=== PATIENT | female | born 1950 | race Caucasian/White ===

== ENCOUNTER → 2019-10-15 09:18 | Outpatient (CLI) | payer MEDICARE, OTHER, SELFPAY ==
--- NOTE | ~2019-10-15 | MM_ITS ---
EXAMINATION: MM diagnostic eric BI w [place] HISTORY: Left mastodynia TECHNIQUE: Craniocaudal, mediolateral, and mediolateral oblique 3-D tomosynthesis images of the breas ts were performed and synthetic 2-D images were generated. CAD analysis was submitted and interpreted . COMPARISON: 08/14/2018, 07/11/2017, 02/12/2012 BREAST PARENCHYMAL COMPOSITION: There are scattered areas of fibroglandular density. FINDINGS: Scattered benign-appearing calcifications are present. There is no evidence of suspicious m ass, calcification, or architectural distortion in either breast to suggest malignancy. There has b een no suspicious interval change. No mammographic correlate is identified for the patient's reported left breast pain. IMPRESSION: 1. No specific mammographic correlate is identified for the patient's left breast pain Further evalua tion at this time should be based on clinical assessment. Continued follow-up physical examination is recommended. 2. Recommend routine screening mammography in one year. BI-RADS Category 2: Benign finding(s). Reviewed, dictated and finalized at location A. IMPRESSION: 1. No specific mammographic correlate is identified for the patient's left yoan st pain Further evaluation at this time should be based on clinical assessment. Continued follow-up physical examination is recommended. 2. Recommend routine screening mammography in one year. BI-RADS Category 2: Benign finding(s).
--- NOTE | ~2019-10-15 | DEXA_ITS ---
Bone Density Report Name: Keysha Richardson Age: 68 Sex: Female Ethnicity: White Date of : 1950 Indication: postmenopausal; screening for osteoporosis; height loss; hysterectomy; Referring Provider: Santhosh, Elsi Xiao Study: Bone densitometry was performed. Exam Date: October 15, 2019 Accession number: [id number] Bone Density: Region BMD T-score Z-score Classification AP Spine (L1, L2, L4) 1.021 -0.1 2.0 Normal Femoral Neck (Left) 0.730 -1.1 0.8 Osteopenia Total Hip (Left) 1.000 0.5 2.0 Normal Femoral Neck (Right) 0.748 -0.9 0.9 Normal Total Hip (Right) 0.939 0.0 1.5 Normal Total Hip Mean 0.970 0.3 1.8 Normal World Health Organization criteria for BMD impression classify patients as: Normal (T-score at or above -1.0), Osteopenia (T-score between -1.0 and -2.5), or Osteoporosis (T-score at or below -2.5). 10-year Fracture Risk(1): Major Osteoporotic Fracture 8.1% Hip Fracture 0.9% Reported Risk Factors: [place] (), Neck BMD=0.730, BMI=40.9 (1) FRAX(R) Version 3.08. Fracture probability calculated for an untreated patient. Fracture probability may be lower if the patient has received treatment. Previous Exams: Region Exam Age BMD T-score BMD Change BMD Change Date g/cm2 vs Baseline vs Previous AP Spine(L1, L2, L4) 10/15/2019 68 1.021 -0.1 -0.080 -0.097* 07/11/2017 66 1.118 0.8 0.017 0.017 09/14/2010 59 1.102 0.6 Total Hip(Left) 10/15/2019 68 1.000 0.5 -0.143 0.004 07/11/2017 66 0.996 0.4 -0.147 -0.092 09/14/2010 59 1.089 1.2 -0.054 -0.054 09/17/2002 51 1.143 1.6 Total Hip(Right) 10/15/2019 68 0.939 0.0 -0.239 -0.061* 07/11/2017 66 0.999 0.5 -0.178 -0.093 09/14/2010 59 1.093 1.2 -0.085 -0.085 09/17/2002 51 1.178 1.9 *Denotes significance at 95% confidence level, LSC for AP Spine = 0.022 g/cm2, LSC for Total Hip = 0.027 g/cm2 Clinical Information Provided by Patient: Has the following medical conditions: Hysterectomy Patient maximum height was 62.5 Menopause Age: 46 No regular weight bearing exercise Does not regularly consume dairy products Drinks caffeinated beverages Onset of menses at age 11 Number of children 1 Impression: The patient has low bone mass, based on the Left Femoral Neck T-score. The p
== END ==
PROVIDERS: PCP Family Medicine; Visit Provider Nurse Practitioner Obstetrics & Gynecology
DX: N64.4 Mastodynia (principal); Z78.0 Asymptomatic menopausal state; M85.852 Other specified disorders of bone density and structure, left thigh
CPT/HCPCS: 77062; 77066; 77080; G0279

== ENCOUNTER 2020-03-24 14:25 | Outpatient (CLI) | payer MEDICARE, OTHER, SELFPAY ==
--- NOTE | ~2020-03-24 | XR_ITS ---
EXAMINATION: XR hip LT 2V w AP pelvis DATE: 03/24/2020 14:58 INDICATION: Left hip pain. TECHNIQUE: An anteroposterior view of the pelvis and 3 views of left hip were obtained. COMPARISON: Pelvis and left hip radiographs 09/13/2018 FINDINGS: Bone alignment is normal. No fracture. There is mild right hip osteoarthritis and moderate left hip osteoarthritis. IMPRESSION: 1. Mild right hip osteoarthritis and moderate left hip osteoarthritis. Reviewed, dictated and finalized at location A.
--- NOTE | ~2020-03-24 | XR_ITS ---
EXAMINATION: XR shoulder LT min 2V DATE: 03/24/2020 14:58 INDICATION: Left shoulder pain. TECHNIQUE: 4 views of left shoulder were obtained. COMPARISON: None. FINDINGS: Bone alignment is normal. No fracture. There is mild osteoarthritis of glenohumeral joint a nd acromioclavicular joint. A calcified left hilar lymph node is consistent with old granulomatous di sease. IMPRESSION: 1. Mild polyarticular osteoarthritis. Reviewed, dictated and finalized at location A.
== END 2020-03-24 14:26 | disposition home or self-care (01) ==
LOC: ANHIMG 14:29
PROVIDERS: PCP Family Medicine; Visit Provider Physician Assistant Medical
DX: M16.11 Unilateral primary osteoarthritis, right hip (principal); M19.012 Primary osteoarthritis, left shoulder
CPT/HCPCS: 73030; 73502

== ENCOUNTER 2020-08-19 12:43 | Outpatient (NON) | payer MEDICARE, OTHER, SELFPAY ==
[2020-08-19 14:41] LABS: Influenza Control Positive
[2020-08-20 18:46] LABS: SARS-CoV-2 RNA PCR Positive
== END 2020-08-19 12:44 ==
LOC: ANHCOVIDDT 12:45
PROVIDERS: PCP Family Medicine; Visit Provider Nurse Practitioner Family
DX: U07.1 COVID-19 (principal)
CPT/HCPCS: 87804; C9803; U0003; U0005

== ENCOUNTER 2020-11-29 10:52 | Outpatient (CLI) | payer MEDICARE, OTHER, SELFPAY ==
--- NOTE | ~2020-11-29 | XR_ITS ---
EXAMINATION: XR knee LT 3V DATE: 11/29/2020 11:12 INDICATION: Left knee pain. TECHNIQUE: 3 views of left knee were obtained. COMPARISON: None. FINDINGS: Bone alignment is normal. No fracture. There is mild tricompartmental osteoarthritis charac terized by tiny marginal osteophytes. No knee joint effusion. IMPRESSION: 1. Mild left knee osteoarthritis. Reviewed, dictated and finalized at location A.
== END 2020-11-29 10:53 | disposition home or self-care (01) ==
PROVIDERS: PCP Family Medicine; Visit Provider Nurse Practitioner Family
DX: M25.562 Pain in left knee (principal); M17.12 Unilateral primary osteoarthritis, left knee
CPT/HCPCS: 73562

== ENCOUNTER 2021-01-06 06:57 | Outpatient (CLI) | payer MEDICARE, OTHER, SELFPAY ==
--- NOTE | ~2021-01-06 | CT_ITS ---
EXAMINATION: CT hip LT wo con DATE: 01/06/2021 07:21 INDICATION: Left hip pain TECHNIQUE: High resolution computed tomography (CT) of the left hip was performed without intravenous contrast. Additional sagittal and coronal reconstructions were performed. Automated exposure control and iterative reconstruction technique were employed. The dose-length product was 412.63 mGy-cm. COMPARISON: Left hip radiographs dated 03/24/2020 FINDINGS: Interval progression of now advanced left hip osteoarthritis with [id number] apposition and promine nt subarticular cystic changes at the left femoral head and superior left acetabulum. There is some f lattening and developing fragmentation of the cephalad aspect of the femoral head. There is also like ly some remodeling of the acetabulum. Secondary superolateral migration of the femoral head within th e acetabulum. Moderate-sized left hip joint effusion. No fracture. There is a small amount of subcuta neous gas overlying the left greater trochanter which may be related to recent trochanteric bursal in jection. Correlate with clinical history. There is fatty atrophy of the left gluteus medius and minim us tendons with proximal retraction of the myotendinous junction of the gluteus medius consistent wit h likely partial tear of the distal tendon. Numerous sigmoid diverticula. Small fat-containing left i nguinal hernia. IMPRESSION: 1. Interval progression of now advanced left hip osteoarthritis with likely reactive moderate sized l eft hip joint effusion. 2. Fatty atrophy of the left gluteus medias and minimus muscle bellies with likely partial tear of th e gluteus medius tendon. 3. Small amount subcutaneous gas overlying the left greater trochanter. Correlate clinically for hist ory of recent trochanteric bursal injection. 4. Small fat-containing left inguinal hernia. 5. Sigmoid diverticulosis. Reviewed, dictated and finalized at location A. IMPRESSION: 1. Interval progression of now advanced left hip osteoarthritis with likely jyoti ctive moderate sized left hip joint effusion. 2. Fatty atrophy of the left gluteus medias and minimus muscle bellies with lik wero partial tear of the gluteus medius tendon. 3. Small amount subcutaneous gas overlying the left greater trochanter. Correla te clinically for history of recent trochanteric bursal injection. 4. Small fat-containing left inguinal hernia. 5. Sigmoid diverticulosis.
--- NOTE | ~2021-01-06 | CT_ITS ---
EXAMINATION: CT lumbar spine wo con DATE: 01/06/2021 07:21 INDICATION: Low back pain. TECHNIQUE: Computed tomography (CT) of the lumbar spine was performed without intravenous contrast. A utomated exposure control and iterative reconstruction technique were employed. The dose-length produ ct was 877.89 mGy-cm. COMPARISON: None FINDINGS: Approximately 15 degrees lumbar levoscoliosis. Sagittal alignment is normal. Vertebral body heights a re normal. No fracture. Small Schmorl's nodes along the endplates of the T11-T12 and L1-L2 disc space s. Severe disc height loss with vacuum phenomena at L2-L3, L3-L4 and L5-S1. Moderate disc height loss at L4-L5. 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 Paravertebral soft tissues are unremarkable. M oderate osteoarthritis at the bilateral sacroiliac joints. The following disc levels are specifically discussed: T11-T12: Disc is mildly bulging. There is mild left and moderate right facet joint osteoarthritis. Th ere is no neural foraminal stenosis. There is no central canal stenosis. T12-L1: Disc is minimally bulging. There is mild bilateral facet joint osteoarthritis. There is no ne ural foraminal stenosis. There is no central canal stenosis. L1-L2: Disc is mildly bulging. There is mild bilateral facet joint osteoarthritis. There is mild bila teral neural foraminal stenosis. There is mild central canal stenosis. L2-L3: Disc is bulging. There is mild left and moderate right facet joint osteoarthritis. There is mo derate right and mild to moderate left neural foraminal stenosis. There is moderate central canal mary nosis. L3-L4: Disc is bulging. There is mild left and moderate to severe right facet joint osteoarthritis. T here is moderate left and moderate to severe right neural foraminal stenosis. There is moderate centr al canal stenosis. L4-L5: Disc is bulging. There is moderate left and severe right facet joint osteoarthritis. There is moderate bilateral neural foraminal stenosis. There is mild central canal stenosis. L5-S1: Disc is bulging. There is moderate bilateral facet joint osteoarthritis. There is moderate mckay ateral neural foraminal stenosis. There is mild central canal stenosis. IMPRESSION: 1. 15 degrees lumbar levoscoliosis with severe spondylosis. No acute osseous abnormality. Reviewed, dictated and finalized at location A. IMPRESSION: 1. 15 degrees lumbar levoscoliosis with severe spondylosis. No acute osseous ab normality.
== END 2021-01-06 06:58 | disposition home or self-care (01) ==
LOC: ANHIMG 07:01
PROVIDERS: PCP Family Medicine; Visit Provider Nurse Practitioner Adult Health
DX: M47.816 Spondylosis without myelopathy or radiculopathy, lumbar region (principal); M48.061 Spinal stenosis, lumbar region without neurogenic claudication; M41.9 Scoliosis, unspecified; K40.90 Unilateral inguinal hernia, without obstruction or gangrene, not specified as recurrent; K57.30 Diverticulosis of large intestine without perforation or abscess without bleeding
CPT/HCPCS: 72131; 73700

== ENCOUNTER 2021-01-10 11:22 | Outpatient (CLI) | payer MEDICARE, OTHER, SELFPAY ==
--- NOTE | ~2021-01-10 | XR_ITS ---
EXAMINATION: XR lg joint inject/asp w image DATE: 01/10/2021 12:46 INDICATION: Left hip pain. TECHNIQUE: A time-out was performed to verify the patient's name, date of , and procedure to b e performed. The procedure including the risks, benefits, and alternatives was discussed with the pat ient. Risks discussed included bleeding and infection. The patient understood the risks and agreed to proceed. The skin overlying the left hip joint was prepped and draped in usual sterile fashion. An esthetic was administered with 1% lidocaine subcutaneously. A 22 G needle was advanced under fluoros copic guidance into the joint. Injection of 1 mL of Omnipaque 240 confirmed intra-articular position of the needle. Subsequently, injectate consisting of 5 mL 1% lidocaine and 1 mL 40 mg/mL Kenalog wa s instilled. The needle was removed and the entry site was cleaned and dressed. There were no immed iate complications. Fluoroscopy exposure time was 0.1 minutes. The total number of images was 2. FINDINGS: Real-time fluoroscopy demonstrates the needle in the left hip joint. Patient's pain prior t o procedure:03/15. Patient's pain following the procedure: 12/13. IMPRESSION: 1. Fluoroscopy guided left hip joint injection of local anesthetic and steroid with decrease in the p atient's presenting pain. Reviewed, dictated and finalized at location A. IMPRESSION: 1. Fluoroscopy guided left hip joint injection of local anesthetic and steroid with decrease in the patient's presenting pain.
== END 2021-01-10 11:23 | disposition home or self-care (01) ==
PROVIDERS: PCP Family Medicine; Visit Provider Nurse Practitioner Adult Health
DX: M25.552 Pain in left hip (principal)
CPT/HCPCS: 20610; 77002; J3301; Q9966

== ENCOUNTER 2021-01-14 15:58 | Outpatient (CLI) | payer MEDICARE, OTHER, SELFPAY ==
--- NOTE | ~2021-01-14 | MR_ITS ---
EXAMINATION: MR lumbar spine wo con DATE: 01/14/2021 16:50 INDICATION: Low back pain TECHNIQUE: Magnetic resonance imaging (MRI) of the lumbar spine was performed without intravenous con trast. Sequences included sagittal T2-weighted FSE, sagittal T2-weighted FS FSE, sagittal T1-weighted FSE, and axial T2-weighted FSE. COMPARISON: CT dated 01/06/2021 FINDINGS: Again seen is 15 degrees lumbar levoscoliosis. Sagittal alignment is normal. Vertebral body heights a re normal. Again seen are a few Schmorl's nodes in the lower thoracic and upper lumbar spine. Normal marrow signal. Severe disc height loss at L2-L3, L3-L4 and L5-S1. Moderate disc height loss at L4-L5 . The conus medullaris terminates at L1-L2. There is normal signal in the caudal spinal cord. Mild di ffuse fatty atrophy of the paraspinal musculature. The following disc levels are specifically discuss ed: T12-L1: The disc does not extend beyond the endplate margin. There is mild left and moderate right fa cet joint osteoarthritis. There is no neural foraminal stenosis. There is no central canal stenosis. L1-L2: Disc is minimally bulging. There is mild bilateral facet joint osteoarthritis. There is mild b ilateral neural foraminal stenosis. There is no central canal stenosis. L2-L3: Annular fissure with broad-based disc extrusion with disc material extending a few millimeters cephalad and caudal to the level of the endplates extending from foraminal zone to foraminal zone Th ere is moderate bilateral facet joint osteoarthritis. There is moderate right and mild to moderate le ft neural foraminal stenosis. There is mild to moderate central canal stenosis. L3-L4: Annular fissure with broad-based disc extrusion with disc material extending a few millimeters cephalad and caudal to the level of the endplates extending from foraminal zone to foraminal zone. T here is moderate right and mild to moderate left facet joint osteoarthritis. There is moderate left a nd moderate to severe right neural foraminal stenosis. There is moderate central canal stenosis. L4-L5: Annular fissure with broad-based disc extrusion with disc material extending a few millimeters cephalad and caudal to the level of the endplates extending from foraminal zone to foraminal zone. T here is moderate left and severe right facet joint osteoarthritis. There is mild to moderate bilatera l neural foraminal stenosis. There is mild to moderate central canal stenosis. L5-S1: Annular fissure with broad-based disc extrusion with disc material extending a couple millimet ers cephalad and caudal to the level of the endplates extending from foraminal zone to foraminal zone There is moderate bilateral facet joint osteoarthritis. There is mild to moderate right and moderate to severe left neural foraminal stenosis. There is mild central canal stenosis. IMPRESSION: 1. 15 degrees lumbar levoscoliosis with severe spondylosis. Reviewed, dictated and finalized at location A.
== END 2021-01-14 15:59 | disposition home or self-care (01) ==
PROVIDERS: PCP Family Medicine; Visit Provider Nurse Practitioner Adult Health
DX: M47.815 Spondylosis without myelopathy or radiculopathy, thoracolumbar region (principal); M48.05 Spinal stenosis, thoracolumbar region; M47.817 Spondylosis without myelopathy or radiculopathy, lumbosacral region; M48.07 Spinal stenosis, lumbosacral region; M41.9 Scoliosis, unspecified
CPT/HCPCS: 72148

== ENCOUNTER 2021-04-14 11:44 | Outpatient (CLI) | payer MEDICARE, OTHER, SELFPAY ==
--- NOTE | ~2021-04-14 | XR_ITS ---
EXAMINATION: XR hip LT 2V w AP pelvis INDICATION: Left hip pain TECHNIQUE: AP view the pelvis and two views of the left hip are obtained COMPARISON: CT, 01/06/2021 FINDINGS: There is advanced osteoarthritis of the left hip with interval worsening. There is complete loss of superior joint space. The left femoral head is flattened. No definite fracture is identified . There is mild osteoarthritis of the right hip. Phleboliths are noted in pelvis. IMPRESSION: 1. Advanced osteoarthritis of the left hip with interval worsening. Reviewed, dictated and finalized at location B.
== END 2021-04-14 11:45 | disposition home or self-care (01) ==
PROVIDERS: PCP Family Medicine
DX: M17.12 Unilateral primary osteoarthritis, left knee (principal); M54.16 Radiculopathy, lumbar region
CPT/HCPCS: 73502

== ENCOUNTER 2022-02-11 08:49 | Outpatient (CLI) | payer MEDICARE, OTHER, SELFPAY ==
--- NOTE | ~2022-02-11 | MR_ITS ---
EXAMINATION: MR brain/brain stem wo/w con DATE: 02/11/2022 10:11 INDICATION: Memory loss TECHNIQUE: Magnetic resonance imaging (MRI) of the brain and brainstem was performed without intraven ous contrast. Sequences included sagittal and axial T1-weighted SE, axial diffusion-weighted FS SE, a xial T2*-weighted GRE, axial T2-weighted FLAIR Propeller, and axial T2-weighted Propeller. Apparent d iffusion coefficient (ADC) maps were created. COMPARISON: MRI dated 04/02/2019. FINDINGS: Mild generalized atrophy. There are scattered mild periventricular and subcortical white ma tter changes, most likely related to small vessel ischemic disease (microangiopathy). No evidence for acute infarction, hemorrhage, mass or mass effect. No abnormal contrast enhancement. Structures of t he posterior fossa including the seventh/8th cranial nerve complexes are unremarkable. Orbits are sym metric. No ventriculomegaly or midline shift. Midline sagittal images demonstrate a normal corpus emmanuel losum and craniovertebral junction. No abnormality of the sella turcica. IMPRESSION: 1. No acute intracranial abnormality. 2: Chronic age-related findings. Reviewed, dictated and finalized at location A.
[2022-02-11 09:38] LABS: Estimated Glomerular Filt Rate 49
== END 2022-02-11 08:50 | disposition home or self-care (01) ==
PROVIDERS: PCP Family Medicine; Visit Provider Physician Assistant Medical
DX: R41.3 Other amnesia (principal)
CPT/HCPCS: 70553; A9577

== ENCOUNTER 2022-05-06 10:05 | Emergency (ER) | payer MEDICARE, OTHER, SELFPAY ==
[2022-05-06 10:15] VITALS: BP 122/69; PULSE 87; RESP 20; TEMP 36.6; O2SAT 100
--- NOTE | 2022-05-06 10:19 | ED.URI ---
HPI - URI/Sore Throat General Chief Complaint: Upper Respiratory Infection Stated Complaint: congestion,ear pain, headache Time Seen by Provider: 05/06/22 10:21 Source: patient and RN notes reviewed Mode of arrival: ambulatory Limitations: no limitations History of Present Illness HPI Narrative: 71-year-old female presents with concern for cough, nasal congestion and rhinorrhea, general malaise Reports 3-day history of symptoms. Reports intermittent headache and possible fever with sweats. She reports she has been taking Mucinex and Tylenol at home. She denies known sick contacts. She denies shortness of breath. MD elicited complaint: cough and nasal congestion Related Data Allergies Allergy/AdvReac Type Severity Reaction Status Date / Time No Known Allergies Allergy Verified 03/22/22 08:38 Review of Systems Review of Systems: CONSTITUTIONAL: Reports malaise, sweats, tactile fever. EYES: Denies visual changes, redness, or discharge. ENT: Reports rhinorrhea, congestion. Denies sinus pain, otalgia and sore throat. CARDIOVASCULAR: Denies chest pain, palpitations, or edema. RESPIRATORY: Reports cough. Denies dyspnea. GASTROINTESTINAL: Denies abdominal pain, nausea, vomiting, diarrhea SKIN: Denies rash or itching. MUSCULOSKELETAL: Denies myalgia. NEUROLOGIC: Reports headache. All systems reviewed & are unremarkable except as noted in HPI and below PMFSH Past Medical History Medical History Anxiety and depression Arthritis Back pain BMI greater than 30 delivery affecting Elevated fasting glucose Essential hypertension Hearing loss Hepatitis Numbness of right lower extremity Positive ELIZABET (antinuclear antibody) Recurrent headache Right sided sciatica Sciatic leg pain Ventral hernia without obstruction or gangrene Visual loss, both eyes Surgical History Surgical History H/O: hysterectomy History of cholecystectomy History of tonsillectomy Family History Family History Father Family history of chronic obstructive pulmonary disease Mother Family history of diabetes mellitus in first degree relative Acute myocardial infarction Sibling No problems noted. 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 There is no relevant family history pertinent to the presenting complaint Exam Narrative: GENERAL: Nontoxic appearing and in no acute distress. HEAD: Normocephalic EYES: PERRLA, conjunctivae clear ENT: Nares clear, turbinates edematous and erythematous, clear discharge. Mucous membranes moist. TM pearly gaston with dull light reflex bilaterally; no tragal tenderness. Oropharynx not erythematous without lesions. Tonsils not enlarged and without exudate, no drooling, no hoarseness, no trismus, uvula midline. NECK: Supple. No lymphadenopathy CHEST: Clear to auscultation, breath sounds equal. No wheezing, rhonchi, rales, or stridor. No respiratory distress, speaks in full sentences. Cough noted HEART: Regular rate and rhythm. No murmur heard. SKIN: Warm, dry, no rash. NEURO: Alert and oriented x3. PSYCH: Normal mood and affect Course Course Emergency Course: Patient is aware of diagnosis, understands and agrees to treatment plan. Anticipatory guidance given. Patient agrees to follow-up as directed a
== END 2022-05-06 10:50 | disposition home or self-care (01) ==
PROVIDERS: Emergency Provider Nurse Practitioner; PCP Family Medicine
DX: J06.9 Acute upper respiratory infection, unspecified (principal); R05.9 Cough, unspecified; Z20.822 Contact with and (suspected) exposure to COVID-19; M19.90 Unspecified osteoarthritis, unspecified site; I10 Essential (primary) hypertension
CPT/HCPCS: 87426; 87804; 99213; C9803; G0463

== ENCOUNTER 2022-09-25 09:34 | Emergency (ER) | payer MEDICARE, OTHER, SELFPAY | END 2022-09-25 11:00 | disposition left against medical advice (07) | PROVIDERS: PCP Family Medicine | DX: Z53.21 Procedure and treatment not carried out due to patient leaving prior to being seen by health care provider (principal) | CPT/HCPCS: 99199 ==

== ENCOUNTER 2022-09-25 11:14 | Emergency (ER) | payer MEDICARE, OTHER, SELFPAY ==
--- NOTE | ~2022-09-25 | XR_ITS ---
Clinical Indication: Shortness of breath PA and lateral views of the chest: Comparison: None Findings: The lungs are clear, without evidence of focal consolidation or pleural effusion. Cardiome diastinal silhouette is within normal limits. Bones and soft tissues are unremarkable. Impression: Normal chest. Reviewed, dictated and finalized at [facility]. MENDER Impression: Normal chest.
[2022-09-25 11:24] VITALS: BP 134/82; PULSE 64; RESP 16; TEMP 36.4; O2SAT 98
--- NOTE | 2022-09-25 11:27 | ED.URI ---
HPI - URI/Sore Throat General Chief Complaint: Upper Respiratory Infection Stated Complaint: shortness of breath, fluid retention in feet Time Seen by Provider: 09/25/22 11:32 Source: patient and RN notes reviewed Mode of arrival: ambulatory Limitations: no limitations History of Present Illness HPI Narrative: 71-year-old female presents concern for dry cough, wheeze, shortness of breath, ankle swelling. She reports her ankles have been swollen for about a month, it has been worse the last 2 days. She reports she also has felt some head congestion, stuffy ears the last couple of days. She denies fevers. She reports she has taken Mucinex at home without relief. She denies chest pain MD elicited complaint: cough and other (Shortness of breath, ankle swelling) Related Data Home Medications Medication Instructions Recorded Confirmed aspirin 81 mg tablet 81 mg PO DAILY 09/25/22 09/25/22 naproxen sodium 220 mg capsule 440 mg PO DAILY 09/25/22 09/25/22 (Aleve) Allergies Allergy/AdvReac Type Severity Reaction Status Date / Time No Known Allergies Allergy Verified 09/25/22 11:21 Review of Systems Review of Systems: CONSTITUTIONAL: Denies malaise, chills, sweats, or fever. EYES: Denies visual changes, redness, or discharge. ENT: Reports rhinorrhea, congestion, otalgia. Denies sinus pain and sore throat. CARDIOVASCULAR: Denies chest pain, palpitations, or edema. RESPIRATORY: Reports cough, wheezing, dyspnea. GASTROINTESTINAL: Denies abdominal pain, nausea, vomiting, diarrhea SKIN: Denies rash or itching. MUSCULOSKELETAL: Reports myalgia. NEUROLOGIC: Denies headache. All systems reviewed & are unremarkable except as noted in HPI and below PMFSH Past Medical History Medical History Adult BMI 37.0-37.9 kg/sq m Anxiety and depression Arthritis Back pain BMI 39.0-39.9,adult BMI greater than 30 delivery affecting Elevated fasting glucose Essential hypertension Hearing loss Hepatitis Numbness of right lower extremity Positive ELIZABET (antinuclear antibody) Recurrent headache Right sided sciatica Sciatic leg pain Ventral hernia without obstruction or gangrene Visual loss, both eyes Surgical History Surgical History H/O: hysterectomy History of cholecystectomy History of tonsillectomy Family History Family History Father Family history of chronic obstructive pulmonary disease Mother Family history of diabetes mellitus in first degree relative Acute myocardial infarction Sibling No problems noted. 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 There is no relevant family history pertinent to the presenting complaint Exam Narrative: GENERAL: Nontoxic-appearing and in no acute distress. HEAD: Normocephalic EYES: PERRLA, conjunctivae clear ENT: Nares clear, clear discharge. Mucous membranes moist. TM pearly gaston with sharp light reflex bilaterally; no tragal tenderness. Oropharynx not erythematous without lesions. Tonsils not enlarged and without exudate, no drooling, no hoarseness, no trismus, uvula midline. NECK: Supple. No lymphadenopathy CHEST: Bilateral lower lobe crackles, breath sounds equal. No wheezing, rales, or stridor.
== END 2022-09-25 12:10 | disposition home or self-care (01) ==
PROVIDERS: Emergency Provider Nurse Practitioner; PCP Family Medicine
DX: R60.0 Localized edema (principal); R05.9 Cough, unspecified; Z79.1 Long term (current) use of non-steroidal anti-inflammatories (NSAID); Z79.82 Long term (current) use of aspirin
CPT/HCPCS: 71046; 99213; G0463

== ENCOUNTER 2022-10-13 08:38 | Emergency (ER) | payer MEDICARE, SELFPAY ==
--- NOTE | 2022-10-13 08:45 | ED.URI ---
HPI - URI/Sore Throat General Chief Complaint: Upper Respiratory Infection Stated Complaint: cough Time Seen by Provider: 10/13/22 08:50 Source: patient, RN notes reviewed and old records reviewed Mode of arrival: ambulatory Limitations: no limitations History of Present Illness HPI Narrative: 71 year old female who presents to [facility] care with complaints of cough, ear pain and congestion for the past 1 week with cough increasing last night. Patient reports that for the past 3 days she has taken NyQuil at night and also has taken some OTC cough medication. Patient reports that she has not had any fevers or chills.She reports that she has had some green colored phlegm. Patient reports that she has been COVID vaccinated and had flu shot. Patient denies any known ill contacts. MD elicited complaint: cough (congestion) and other (ear pain) Onset (ago): week(s) (1) Pain scale (0-10): 3 Description of mucous: green Able to tolerate fluids by mouth: Yes Associated symptoms: myalgias, rhinorrhea and nasal congestion Treatments prior to arrival: cold medicine and other (NyQuil,) Related Data Home Medications Medication Instructions Recorded Confirmed aspirin 81 mg tablet 81 mg PO DAILY 09/25/22 09/29/22 naproxen sodium 220 mg capsule 440 mg PO DAILY 09/25/22 09/29/22 (Aleve) Allergies Allergy/AdvReac Type Severity Reaction Status Date / Time No Known Allergies Allergy Verified 10/13/22 08:53 Review of Systems Review of Systems: CONSTITUTIONAL: Denies malaise, chills, sweats, or fever. EYES: Denies visual changes, redness, or discharge. ENT: Reports rhinorrhea, congestion,no sinus pain,positive otalgia no sore throat. CARDIOVASCULAR: Denies chest pain, palpitations, or edema. RESPIRATORY: Reports cough.? reports some dyspnea. GASTROINTESTINAL: Denies abdominal pain, nausea, vomiting, diarrhea SKIN: Denies rash or itching. MUSCULOSKELETAL: Reports myalgia. NEUROLOGIC: Denies headache. All systems reviewed & are unremarkable except as noted in HPI and below PMFSH Past Medical History Medical History Adult BMI 37.0-37.9 kg/sq m Anxiety and depression Arthritis Back pain BMI 39.0-39.9,adult BMI greater than 30 BMI greater than 40 delivery affecting Elevated fasting glucose Essential hypertension Hearing loss Hepatitis Numbness of right lower extremity Positive ELIZABET (antinuclear antibody) Recurrent headache Right sided sciatica Sciatic leg pain Ventral hernia without obstruction or gangrene Visual loss, both eyes Surgical History Surgical History H/O: hysterectomy History of cholecystectomy History of tonsillectomy Family History Family History Father Family history of chronic obstructive pulmonary disease Mother Family history of diabetes mellitus in first degree relative Acute myocardial infarction Sibling No problems noted. 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 There is no relevant family history pertinent to the presenting complaint Exam Narrative: GENERAL: Well-appearing, well-nourished, and in no acute distress. HEAD: Normocephalic EYES: PERRLA, conjunctivae clear ENT: Na
[2022-10-13 08:46] VITALS: BP 123/86; PULSE 78; RESP 16; TEMP 36.5; O2SAT 98
== END 2022-10-13 09:20 | disposition home or self-care (01) ==
PROVIDERS: Emergency Provider Registered Nurse; PCP Family Medicine
DX: J06.9 Acute upper respiratory infection, unspecified (principal); I10 Essential (primary) hypertension
CPT/HCPCS: 99213; G0463

== ENCOUNTER → 2023-05-29 11:41 | Outpatient (CLI) | payer MEDICARE, OTHER, SELFPAY ==
--- NOTE | ~2023-05-29 | DEXA_ITS ---
Bone Density Report Name: CAMPBELL DAMON Age: 72 Sex: Female Ethnicity: White Date of : 1950 Indication: postmenopausal; screening for osteoporosis; height loss; hysterectomy; Referring Provider: Santhosh, Elsi Xiao Study: Bone densitometry was performed. Exam Date: May 29, 2023 Accession number: [id number] Bone Density: Region BMD T-score Z-score Classification AP Spine (L1, L2, L4) 0.967 -0.6 1.8 Normal Femoral Neck (Right) 0.670 -1.6 0.4 Osteopenia Total Hip (Right) 0.824 -1.0 0.8 Normal World Health Organization criteria for BMD impression classify patients as: Normal (T-score at or above -1.0), Osteopenia (T-score between -1.0 and -2.5), or Osteoporosis (T-score at or below -2.5). 10-year Fracture Risk(1): Major Osteoporotic Fracture 11% Hip Fracture 2.1% Reported Risk Factors: [place] (), Neck BMD=0.670, BMI=34.0 (1) FRAX(R) Version 3.08. Fracture probability calculated for an untreated patient. Fracture probability may be lower if the patient has received treatment. Previous Exams: Region Exam Age BMD T-score BMD Change BMD Change Date g/cm2 vs Baseline vs Previous AP Spine(L1, L2, L4) 05/29/2023 72 0.967 -0.6 -0.135* -0.054 10/15/2019 68 1.021 -0.1 -0.080 -0.097* 07/11/2017 66 1.118 0.8 0.017 0.017 09/14/2010 59 1.102 0.6 Total Hip(Right) 05/29/2023 72 0.824 -1.0 -0.354 -0.115 10/15/2019 68 0.939 0.0 -0.239 -0.061* 07/11/2017 66 0.999 0.5 -0.178 -0.093 09/14/2010 59 1.093 1.2 -0.085 -0.085 09/17/2002 51 1.178 1.9 *Denotes significance at 95% confidence level, LSC for AP Spine = 0.022 g/cm2, LSC for Total Hip = 0.027 g/cm2 Clinical Information Provided by Patient: Has the following medical conditions: Hysterectomy Patient maximum height was 63.0 Menopause Age: 46 No regular weight bearing exercise Does not regularly consume dairy products Drinks caffeinated beverages Onset of menses at age 11 Number of children 1 Impression: The patient has low bone mass, based on the Right Femoral Neck T-score. The patient has an estimated ten-year risk of hip fracture of 2.1% and an estimated ten-year risk of major fracture of 11%, based on the WHO FRAX algorithm. No significant bone loss was observed. Discussion: BONE DENSITY IS LOW AT ONE OR MORE SKELETAL SITES. This patient's lowest T-score is low at one or more skeletal
== END ==
PROVIDERS: PCP Family Medicine; Visit Provider Nurse Practitioner Obstetrics & Gynecology
DX: M85.80 Other specified disorders of bone density and structure, unspecified site (principal); Z78.0 Asymptomatic menopausal state
CPT/HCPCS: 77080

== ENCOUNTER 2024-03-03 09:28 | Emergency (ER) | payer MEDICARE, SELFPAY ==
[2024-03-03 09:45] VITALS: BP 115/80; PULSE 74; RESP 15; TEMP 36.6; O2SAT 100
--- NOTE | 2024-03-03 10:05 | ED.SKABFB ---
HPI - Skin/Abscess/Foreign Bdy General Chief complaint: Skin/Abscess/Foreign Body Stated complaint: Rash Time Seen by Provider: 03/03/24 10:06 Source: patient Mode of arrival: ambulatory Limitations: no limitations History of Present Illness HPI narrative: 73-year-old female presented for complaint of a rash to the chest with itching x2 days. Patient used hydrocortisone and ketoconazole since onset without relief. Attributes rash to picking fruit. Denies pain or drainage to the site. Denies any other locations of rash. Denies lip, tongue, or throat swelling, shortness of breath or wheezing. Denies changes to soap, detergent, lotion, or any other exposures. No one else in the house or any contacts with similar symptoms. Related Data Home Medications Medication Instructions Recorded Confirmed aspirin 81 mg tablet 81 mg PO DAILY 09/25/22 03/03/24 Allergies Allergy/AdvReac Type Severity Reaction Status Date / Time No Known Allergies Allergy Verified 03/03/24 09:41 Review of Systems Review of Systems: CONSTITUTIONAL: Denies body aches, fever, chills, or sweats. EYES: Denies visual changes, redness, or discharge. ENT: Denies rhinorrhea, congestion CARDIOVASCULAR: Denies chest pain, palpitations, or edema. RESPIRATORY: Denies cough or dyspnea. GASTROINTESTINAL: Denies abdominal pain, nausea, vomiting, or diarrhea. SKIN: Per HPI MUSCULOSKELETAL: Denies back pain, joint pain, or myalgia. NEUROLOGIC: Denies headache, numbness, tingling, or weakness. [facility] Past Medical History Medical History Anxiety and depression Arthritis Back pain BMI 31.0-31.9,adult delivery affecting Elevated fasting glucose Essential hypertension Hearing loss Hepatitis Numbness of right lower extremity Positive ELIZABET (antinuclear antibody) Recurrent headache Right sided sciatica Sciatic leg pain Ventral hernia without obstruction or gangrene Visual loss, both eyes Surgical History Surgical History H/O: hysterectomy History of cholecystectomy History of tonsillectomy Family History Family History Father Family history of chronic obstructive pulmonary disease Mother Family history of diabetes mellitus in first degree relative Acute myocardial infarction Sibling No problems noted. 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 Please see nursing chart for further information. There is no relevant family history pertinent to the presenting complaint Exam Narrative: GENERAL: Well-appearing EYES: conjunctivae clear, and EOMI. ENT: Mucous membranes moist. Oropharynx without edema, erythema or lesions. NECK: Supple. No lymphadenopathy CHEST: Clear to auscultation. HEART: Regular rate and rhythm. SKIN: Warm, dry. mid chest right breast area of erythema 3cm diameter, left breast area of erythema 2cm diameter with appro 4mm area of patchy dry skin; the sites appear consistent with significant scratching from fingernails; skin is dry; no vesicles or open areas, no drainage or fluctuance, no warmth or tenderness NEURO: Alert and oriented x3. Chest: Chest/axillae images: 1. locatio
== END 2024-03-03 10:24 | disposition home or self-care (01) ==
PROVIDERS: Emergency Provider Nurse Practitioner Family; PCP Family Medicine
DX: L30.9 Dermatitis, unspecified (principal); I10 Essential (primary) hypertension; M19.90 Unspecified osteoarthritis, unspecified site; Z79.82 Long term (current) use of aspirin
CPT/HCPCS: 99213; G0463

== ENCOUNTER 2024-10-07 08:18 | Emergency (ER) | payer MEDICARE, SELFPAY ==
[2024-10-07 08:42] VITALS: BP 109/74; PULSE 83; RESP 16; TEMP 36.2; O2SAT 97
--- NOTE | 2024-10-07 08:43 | ED.URI ---
HPI - URI/Sore Throat General Chief Complaint: Upper Respiratory Infection Stated Complaint: Upper Respiratory Symptoms Time Seen by Provider: 10/07/24 08:43 Source: patient, RN notes reviewed and old records reviewed Mode of arrival: ambulatory Limitations: no limitations History of Present Illness HPI Narrative: patient presents with complaints of flu-like symptoms that began yesterday. She has been taking Mucinex for her symptoms with no relief. She appears to feel unwell, but is not in any obvious distress Related Data Home Medications ?Medication ?Instructions ?Recorded ?Confirmed ?Last Taken ?Type aspirin 81 mg tablet 81 mg PO DAILY 09/25/22 08/13/24 Unknown History donepezil 10 mg tablet mg 10/07/24 Unknown History donepezil 5 mg tablet mg 10/07/24 Unknown History Allergies Allergy/AdvReac Type Severity Reaction Status Date / Time No Known Allergies Allergy Verified 10/07/24 08:53 Review of Systems Review of Systems: All systems reviewed & are unremarkable except as noted in HPI and below Constitutional: Constitutional: Reports no additional constitutional complaints, Reports body ache(s), Reports chills, Reports headache(s) and Reports lethargy ENT: Reports system reviewed and no additional complaints, except as documented, Reports nasal congestion and Reports nasal discharge Cardiovascular: Cardiovascular: Reports no additional cardiovascular complaints Respiratory: Respiratory: Reports no additional respiratory complaints, Reports chest congestion, Reports cough and Reports wheezing Gastrointestinal: Gastrointestinal: Reports no additional gastrointestinal complaints Musculoskeletal: Musculoskeletal: Reports myalgias PMFSH Past Medical History Medical History Abscess of back delivery affecting Visual loss, both eyes Hepatitis Hearing loss Back pain Arthritis Anxiety and depression Elevated fasting glucose Essential hypertension Numbness of right lower extremity Positive ELIZABET (antinuclear antibody) Recurrent headache Right sided sciatica Ventral hernia without obstruction or gangrene Sciatic leg pain Surgical History Surgical History H/O: hysterectomy History of tonsillectomy History of cholecystectomy Family History Family History Father Family history of chronic obstructive pulmonary disease Mother Family history of diabetes mellitus in first degree relative Acute myocardial infarction Sibling No problems noted. 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 There is no relevant family history pertinent to the patient complaint. Exam Const: General: cooperative, no acute distress, alert, awake and uncomfortable Orientation/consciousness: oriented to person, oriented to place and oriented to time HENMT: Head: normal to inspection Mouth: Yes moist mucous membranes Resp: Effort & Inspection: normal respiratory effort and able to speak in complete sentences Auscultation: clear to auscultation bilaterally, no crackles, no rales, no rhonchi, wheezes scattered wheezes and diminished lung sounds Other: harsh cough Cardio: Palpation: normal PMI Rate: regular rate Rhythm: regular rhythm Heart sounds: S1 normal heart sound present and S2 normal heart sound present Neuro: General: oriented to person, oriented to place and oriented to time Cranial nerves: Yes CN's II-XII intact bilaterally Psych: Appearance: grossly normal Thought process: Normal thought process present Insight: Good insight present (Psych) Judgement: Good judgement present (Psych) Course Course Level of Care: Express Care Visit Vital Signs Vital signs: Reviewed MDM - URI/Sore Throat MDM Narrative Medical decision making narrative: negative influenza, positive COVID. Patient not a candidate for Paxloxid, start prednisone burst and bronchodilator for wheezing. Nova Madirgal for cough. She is advised to go to emergency department immediately for any worsening symptoms. Discharge instructions reviewed with patient, as well as provided in writing per nursing staff. The instructions also include specific and strict return/GO TO THE ER as well as f/u information. All questions have been answered, and the patient deny any further questions with discharge and discharge plan. Some parts of this dictation were generated by voice recognition software and may contain typographical and/or grammatical inaccuracies. Differential Diagnosis Differential diagnosis: Likely upper respiratory infection, otitis media, sinusitis, viral infection and influenza Medical Records Attestation: I reviewed the patient's medical records. Lab Data Attestation: I reviewed the patient's lab results. Discharge Plan Discharge Clinical Impression: COVID-19 Patient Disposition: Home, Self-Care Condition: Stable Instructions: Antibiotic Form, How to Recover from COVID-19 at Home (ED) Additional Instructions: Take medications as prescribed. Follow-up with primary care provider. Emergency department immediately for new or worse symptoms Patient Language: Kyrgyz Prescriptions: New prednisone 50 mg tablet 50 mg PO DAILY Qty: 5 0RF albuterol sulfate [Ventolin HFA] 90 mcg/actuation HFA aerosol inhaler 2 puff inhalation QID PRN (Reason: shortness of breath or wheezing) Qty: 8.5 0RF benzonatate 200 mg capsule 200 mg PO TID PRN (Reason: cough) Qty: 30 0RF No Action donepezil 5 mg tablet donepezil 10 mg tablet aspirin 81 mg Tablet 81 mg PO DAILY tramadol 50 mg tablet 50 mg PO Q6H PRN (Reason: pain) Qty: 10 0RF omeprazole magnesium 20 mg capsule,delayed release(DR/EC) 20 mg PO DAILY Qty: 90 1RF escitalopram oxalate [Lexapro] 20 mg tablet 20 mg PO DAILY Qty: 90 3RF meloxicam 15 mg tablet 15 mg PO DAILY Qty: 90 0RF triamterene-hydrochlorothiazid 75-50 mg tablet 1 tablet PO DAILY Qty: 90 2RF rosuvastatin 20 mg tablet 20 mg PO DAILY Qty: 90 1RF hydroxyzine pamoate [Vistaril] 25 mg capsule 25 mg PO BID Qty: 60 2RF Follow-up/Referrals: PHYSICIAN,MATERIALS SPECIALIST [Primary Care Provider] - 1 Week Time of Disposition: 09:01
[2024-10-07 08:59] LABS: EDCOVIDSCREEN Positive (Negative); EDINFLUASCREEN Negative (Negative); EDINFLUBSCREEN Negative (Negative)
== END 2024-10-07 09:03 | disposition home or self-care (01) ==
PROVIDERS: Emergency Provider Nurse Practitioner Family
DX: U07.1 COVID-19 (principal); Z79.82 Long term (current) use of aspirin; F41.8 Other specified anxiety disorders; I10 Essential (primary) hypertension
CPT/HCPCS: 87426; 87804; 99213; G0463

== ENCOUNTER 2025-07-08 08:18 | Outpatient (CLI) | payer MEDICARE, SELFPAY ==
--- OUTSIDE RECORDS SUMMARY | 2025-07-08 08:35 | XMS_ITS | Clinical Summary ---
Author Organization [facility] Address [address] [place] [id number] Phone Care Team Providers Care Power Checker Name Role Phone Moreno Anton MD Primary Care Provider [phone] Allergies No known active allergies Medications escitalopram (LEXAPRO) 10 MG tablet TK 1 T PO Q DAY 04/13/2020 Active meloxicam (MOBIC) 7.5 MG tablet TK 1 T PO D 04/30/2020 Active rosuvastatin (CRESTOR) 20 MG tablet TK 1 T PO QD 05/05/2020 Active triamterene-hydr oCHLOROthiazide (MAXZIDE) 75-50 MG per tablet TK 1 T PO D 04/13/2020 Active omeprazole (PriLOSEC) [address] capsule TK ONE C PO D 06/07/2020 Active tiZANidine (ZANAFLEX) 4 MG tablet 06/03/2020 Active Active Problems Problem Noted Date Diagnosed Date Pes anserinus bursitis of right knee 03/01/2018 Primary osteoarthritis of right knee 03/27/2017 Pain in limb 05/26/2014 Overview (06/20/2020): Pain in limb Family History Medical History Relation Comments Coronary artery disease Brother COPD Father Stroke Father Diabetes mellitus Mother Heart disease Mother Relation Status Comments Brother Father Mother Social History Tobacco Use Types Packs/Day Years Used Date Smoking Tobacco: Never Smokeless Tobacco: Never Alcohol Use Standard Drinks/Week Comments Not Currently 0 (1 standard drink = 0.6 oz pur e alcohol) Comments Unknown Sex and Gender Information Value Date Recorded Sex Assigned at Not on file Legal Sex Female 9:58 AM [facility] Gender Identity Not on file Sexual Orientation Not on file Last Filed Vital Signs Vital Sign Reading Time Taken Comments Blood Pressure 130/70 06/14/2020 9:54 AM [employer] Pulse - - Temperature 36.8 C (98.3 F) 06/14/2020 9:54 AM [employer] Respiratory Rate 18 06/14/2020 9:54 AM [employer] Oxygen Saturation - - Inhaled Oxygen Concentration - - Weight 93 kg (205 lb) 06/14/2020 9:54 AM [employer] ARCH[employer] Height 160 cm (5' 3) 06/14/2020 9:54 AM [employer] ARCHIT[employer] Body Mass Index 36.31 06/14/2020 9:54 AM [employer]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 MEDICARE SUPPLEMENT [place] [id number] Care Teams Power Checker Relationship Specialty Start Date End Date Moreno Anton MD [address] [place] [address] PCP - General Family Medicine 06/08/20
--- OUTSIDE RECORDS SUMMARY | 2025-07-08 08:35 | XMS_ITS | Clinical Summary ---
Author Organization [facility] Address [facility] [place] [address] Care Team Providers Care Actuarial Trainee Name Role Phone Moreno Anton MD Primary Care Provider [phone] Allergies No known active allergies Medications omeprazole 20 MG capsule Take 20 mg by mouth daily. Active triamterene-hyd roCHLOROthiazid e 75-50 MG tablet Take 1 tablet by mouth daily. Active escitalopram 10 MG tablet Take 10 mg by mouth daily. Active rosuvastatin 20 MG tablet Take 20 mg by mouth nightly at bedtime. Active naproxen sodium 220 MG tablet Take 220 mg by mouth 2 (two) times daily with meals. Active diazePAM 5 MG tablet 01/31/2021 Active Active Problems Problem Noted Date Diagnosed Date Lumbar radiculopathy 01/25/2021 Family History Medical History Relation Comments Heart Disease Brother Heart Disease Father Heart Disease Mother muscular dystrophy Mother Relation Status Comments Brother Father Mother Social History Tobacco Use Types Packs/Day Years Used Date Smoking Tobacco: Never Smokeless Tobacco: Never Alcohol Use Standard Drinks/Week Comments Never 0 (1 standard drink = 0.6 oz pur e alcohol) Comments No Sex and Gender Information Value Date Recorded Sex Assigned at Not on file Legal Sex Female 3:43 PM CDT Gender Identity Not on file Sexual Orientation Not on file 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 Not on file Not on fi le Not on file Last Filed Vital Signs Vital Sign Reading Time Taken Comments Blood Pressure 113/70 02/28/2021 12:23 PM CDT Pulse 69 02/28/2021 12:23 PM CDT Temperature 36.6 C (97.9 F) 02/28/2021 11:00 AM CDT Respiratory Rate 20 02/28/2021 12:23 PM CDT Oxygen Saturation 99% 02/28/2021 12:23 PM CDT Inhaled Oxygen Concentration - - Weight 81.2 kg (179 lb) 02/28/2021 11:00 AM CDT Height 158.8 cm (5' 2.5) 02/28/2021 11:00 AM CD T Body Mass Index 32.22 02/28/2021 11:00 AM CDT Plan of Treatment Health Maintenance Due Date Last Done Comments Hepatitis C 1968 DTaP, Tdap and Td Vaccines ( 1 - Tdap) 11/30/1967 Annual Medicare Wellness Visit 2013 Dexa Scan (General) 2013 Pneumococcal Vaccine: 50+ Years (2 of 2 - PCV20 or PCV21) 05/10/2018 05/10/2017 RSV Immunization or 60+ Years (1 - 1-dose 75+ series) 11/30/2023 COVID-19 Vaccine (2 - 2024-2 6 season) 2025 10/08/2020 Influenza Adult (#1) 2025 05/08/2019 Zoster Vaccines Completed 07/25/2019, 05/08/2019, 05/25/2014 Hepatitis A Vaccines Aged Out No long er eligible based on patient's age to complete this topic Meningococcal B Vaccine Aged Out No l onger eligible based on patient's age to complete this topic Meningococcal Vaccine Aged Out No steve olivia eligible based on patient's age to complete this topic RSV Immunizations Under 20 Months Aged Out No longer eligible b ased on patient's age to complete this topic Insurance MEDICARE [facility] Care Teams Actuarial Trainee Relationship Specialty Start Date End Date Moreno Anton MD [address] [address] PCP - General FAMILY PRACTICE 01/25/21
--- OUTSIDE RECORDS SUMMARY | 2025-07-08 08:36 | XMS_ITS | Clinical Summary ---
Author Organization [facility] Building [address] Address [address] [place] [address] Care Team Providers Care Alpaca Farmer Name Role Phone Moreno Anton MD Primary Care Provider + [phone] Allergies No known active allergies Medications triamterene-hydroC HLOROthiazide (MAXZIDE,DYAZIDE) 75-50 mg per tablet take 1 tablet by oral route every day 0 0 05/26/20 14 Active Additional Information Patient taking differently: oral Every morning, Indications: hypertension, Informant: Self, Reported on 03/23/2025 rosuvastatin (CRESTOR) 40 mg tabletIndications: hyperlipidemia Take 1 tablet (40 mg total) by mouth nightly 0 08/02/20 18 Active escitalopram (LEXAPRO) 10 mg tabletIndications: Anxiety with Depression Take 2 tablets (20 mg total) by mouth every morning 04/13/20 20 Active omeprazole (PriLOSEC) 20 mg capsuleIndications :Treatment of Non-Bleeding Gastric Disorder Take 1 capsule (20 mg total) by mouth every morning Active acetaminophen 500 mg capsuleIndications :Pain Take 2 capsules (1,000 mg total) by mouth every 8 (eight) hours 90 tablet 01/10/20 23 Active Additional Information Patient not taking.Reported on 03/23/2025 aspirin 81 mg enteric coated tabletIndications: Deep Vein Thrombosis Prevention Take 1 tablet (81 mg total) by mouth 2 (two) times a day 60 tablet 01/10/20 23 Active ondansetron ODT (ZOFRAN-ODT) 4 mg disintegrating tabletIndications: nausea and vomiting Take 1 tablet (4 mg total) by mouth every 6 (six) hours as needed for nausea or vomiting 20 tablet 01/10/20 23 Active Additional Information Patient not taking.Reported on 03/23/2025 senna-docusate (PERICOLACE) 8.6-50 mgIndications:cons tipation Take 2 tablets by mouth 2 (two) times a day 60 tablet 1 01/10/20 23 Active Additional Information Patient not taking.Reported on 03/23/2025 polyethylene glycol (MIRALAX) 17 gram packetIndications: constipation Take 1 packet (17 g total) by mouth daily 15 packet 01/12/20 23 Active hydrOXYzine (VISTARIL) 25 mg capsule 05/03/20 23 Active meloxicam (MOBIC) 15 mg tablet Take 1 tablet (15 mg total) by mouth daily 01/01/20 24 Active nystatin powder APPLY TOPICALLY THREE TIMES DAILY 03/05/20 24 Active nystatin powder APPLY TOPICALLY THREE TIMES DAILY 03/16/20 24 Active predniSONE (DELTASONE) 20 mg tablet TAKE 2 TABLETS BY MOUTH DAILY FOR 4 DAYS 03/03/20 24 Active escitalopram (LEXAPRO) 20 mg tablet Take 1 tablet (20 mg total) by mouth daily 12/30/19 24 Active omega 5-zuh-xlw-fish oil (Fish OiL) 1,000 mg (120 mg-180 mg) capsule Active rosuvastatin (CRESTOR) 20 mg tablet Take 1 tablet (20 mg total) by mouth daily 12/30/19 24 Active donepeziL (ARICEPT) 10 mg tablet TAKE 1 TABLET(10 MG) BY MOUTH DAILY 30 tablet 5 12/31/19 25 Active Active Problems Problem Noted Date Diagnosed Date Mild cognitive impairment 09/22/2024 Assessment & Plan (03/23/2025 9:12 AM CDT): Overall, stable cognitive testing. Continue donepezil/Aricept 10 mg daily. Discussed limiting use of hydroxyzine. CS is going to try to wean patient off of it. At the moment, she is uninterested in pursuing biomarkers or anti-amyloid therapies. Provided information on the SUNBIRD study. Follow-up in 6 months or sooner if need be. Assessment & Plan (09/22/2024 9:31 AM CLAIMS CLERK): Overall, relatively stable cognitive testing. She recently started back on donepezil/Aricept 5 mg daily. She has been tolerating it well. A new script for 10 mg daily was made today in which she will take in two weeks. She has not been sleeping as well as she had been with taking Benadryl. We can consider adding trazodone in the future. Recommended CS install Life 360 on patient's/CS's phone. Also recommended riding with patient on occasion to monitor her driving habits. We briefly discussed biomarkers and anti-amyloid therapies. Since our last visit, CS has purchased hearing aids for the patient. She is not fond of them but CS states he will continue to push her to wear them consistently. Follow-up in 6 months or sooner if need be. 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 It is possible the patient had an intra-articular fracture of the hip joint that destabilize the joint as well. Her MRI does reveal evidence of damage to the gluteal abductor muscles which may further destabilize her hip. She is likely to require hip replacement surgery due the advanced nature of her her arthritis and may have difficulties achieving a stable acetabular cup. She may require bone grafting or specialized cup or even customized prosthesis. With the recommended expertise of the experts at [facility] and have referred the patient Lumbar radiculopathy 01/25/2021 Pes anserinus bursitis of left knee 07/08/2020 Pes anserinus bursitis of right knee 03/01/2018 Primary osteoarthritis of right knee 03/27/2017 Pain in extremity 05/26/2014 Overview (11/09/2016): Pain in limb Morbid obesity 01/01/2014 Overview (05/04/2023): Obesity, Morbid;Recorded Elsewhere: No Location: [facility] Source: EHR Chronic: N Practice ID: [id number] Billable Time: 04:30:00 PM Encounters Date Type Department Care Team Description 06/10/2025 Telephone [facility] [address] [place] [address] Kendal Robin RN 06/10/2025 Telephone [facility] [address] [place] [address] Kendal Robin RN from Last 3 Months Immunizations Immunization Administration Dates Next Due Influenza, Quad, Adjuvantate d, Intramuscular 04/19/2020 Influenza, Trivalent, Adjuva nted, Intramuscular 05/08/2019 Influenza, Trivalent, High D ose, Split, Preservative Free, Intramuscular 05/13/2018,05/10/2017,05/02/2016 Influenza, Trivalent, IM (MDV) 05/23/2013 Influenza, Trivalent, Preser vative Free, Intramuscular 04/19/2020,05/11/2015 Influenza, Unspecified 05/13/2021 Pneumococcal Conjugate PCV 13 05/10/2017 Pneumococcal Polysaccharide PPV23 05/13/2018 ZOSTER LIVE 05/25/2014 ZOSTER Recombinant 07/25/2019,05/08/2019 Surgical History Surgery Date Site/Laterality Comments TOTAL ABDOMINAL HYSTERECTOMY Hysterectomy, total CHOLECYSTECTOMY Cholecystectomy TRIGGER FINGER RELEASE SECTION CARPAL TUNNEL RELEASE FLUORO GUIDED ASPIRATION OR INJECTION LARGE JOINT LEFT 06/01/2021 Left Medical History Medical History Date Comments Hx Other Medical Obesity Hx Other Medical HLP Hx Other Medical C section Hx Other Medical carpal tunnel r elease surgery Hypercholesteremia GERD (gastroesophageal reflux disease) Infectious viral hepatitis B Arthritis Osteoarthritis PONV (postoperative nausea and vomiting) Family History Medical History Relation Name Comments Heart attack Brother Myocardial infa rction; Cause of : Myocardial infarction Other Father cerebral vascul ar hemorrage; Cause of : cerebral vascular hemorrage Memory loss Father's Sister Heart attack Mother Myocardial infa rction; Cause of : Myocardial infarction Anesthesia problems Neg Hx Malig Hypertension Neg Hx Malig Hyperthermia Neg Hx Pseudochol deficiency Neg Hx Relation Name Status Comments Brother Father Father's Sister Mother Social History Tobacco Use Types Packs/Day Years Used Date Smoking Tobacco: Never Smokeless Tobacco: Never Tobacco Cessation:Counseling Given: Not Answered Alcohol Use Standard Drinks/Week Comments Yes 1 (1 standard drink = 0.6 oz pur e alcohol) occassionally AUDIT-C Answer Date Recorded Q1: How often do you have a drink containing alcohol? Never 01/03/2023 Q2: How many drinks containi ng alcohol do you have on a typical day when you are drinking? Patient does not drink Q3: How often do you have si x or more drinks on one occasion? Never 01/03/2023 Personal Safety Answer Date Recorded Have you ever been in or are you currently in a harmful physical or emotional relationship or is someone making you feel afraid or unsafe? Denies 01/11/2023 Comments Unknown Sex and Gender Information Value Date Recorded Sex Assigned at Not on file Legal Sex Female 11:23 AM CLAIMS CLERK Gender Identity Not on file Sexual Orientation Not on file Last Filed Vital Signs Vital Sign Reading Time Taken Comments Blood Pressure 115/73 03/23/2025 8:28 AM CDT Pulse 71 03/23/2025 8:28 AM CDT Temperature 36.6 C (97.8 F) 03/23/2025 8:28 AM CDT Respiratory Rate 15 01/11/2023 12:47 AM CDT Oxygen Saturation 95% 03/23/2025 8:28 AM CDT Inhaled Oxygen Concentration - - Weight 91.4 kg (201 lb 8 oz) 03/23/2025 8:28 AM CDT Height 157.5 cm (5' 2) 03/23/2025 8:28 AM CDT Body Mass Index 36.85 03/23/2025 8:28 AM CDT Plan of Treatment Health Maintenance Due Date Last Done Comments Depression Screening 1950 Hepatitis C Screening 1950 Osteoporosis Screening-Bone Density Scan 1950 DTaP/Tdap/Td Vaccine (1 - Tdap) 11/30/1959 Hepatitis B Screening 1966 Well Visit 65+ 2013 Fall Risk Assessment 01/10/2024 01/09/2023 Covid-19 Vaccine (2 - 2024-2 6 season) 2025 10/08/2020 Influenza Vaccine (#1) 2025 , 04/19/2020, 04/19/2020, Additional history exists Pneumococcal vaccine 65+ Completed 05/13/2018, 12/2016 Zoster Vaccine Completed 07/25/2019, 10/2018, 05/25/2014 Medical Devices Implanted Type Area Straightening Machine Feeder Device Identifier Shelf Expiration Date Model / Serial / Lot [employer] 6197-9-010 Simplex P Full Dose Radiopaque Preblend Cement Bone Tobramycin - [id number] - [id number] Implanted:Qty: 1 on 06/02/2021 by Francois Tracey MD at [facility] Bone Cement Left: Hip [employer] 08/05/2022 6197-9-010 / [id number] / [id number] [employer] 6197-9-010 Simplex P Full Dose Radiopaque Preblend Cement Bone Tobramycin - [id number] - [id number] Implanted:Qty: 1 on 06/02/2021 by Francois Tracey MD at [facility] Bone Cement Left: Hip [employer] 04/05/2022 6197-9-010 / [id number] / [id number] [employer] [id number] G7 54mm Multihole Hip F Hemisphere Offset Shell Acetabular - [id number] - [id number] Implanted:Qty: 1 on 06/02/2021 by Francois Tracey MD at [facility] Other - see comments Left: Hip [employer] [id number] 07/13/2030 [id number] / [id number] / [id number] Description:shell [employer] 0580-1-352 [place] V40 Cemented Hip 0 35.5mm Offset Stem Femoral - [id number] - [id number] Implanted:Qty: 1 on 06/02/2021 by Francois Tracey MD at [facility] Other - see comments Left: Hip [employer] [id number] 06/03/2025 0580-1-352 / [id number] 2 / [id number] Description:Stem [employer] Liner Hip G7 Longevity 10deg 40mm F - [id number] - [id number] Implanted:Qty: 1 on 06/02/2021 by Francois Tracey MD at [facility] Other - see comments Left: Hip [employer] [id number] 09/05/2024201050002113 / [id number] / [id number] Description:Liner [employer] 6519-T-204 V40 Hip +4mm Offset [place] Taper Sleeve Adapter Titanium - S0 - [id number] Implanted:Qty: 1 on 06/02/2021 by Francois Tracey MD at [facility] Other - see comments Left: Hip [employer] [id number] 03/18/2025 6519-T-204 / 0 / [id number] Description:Sleeve [employer] [id number] Trilogy 6.5mm 30mm Self Tap Acetabular Cortical Screw Bone - S0 - [id number] Implanted:Qty: 1 on 06/02/2021 by Francois Tracey MD at [facility] Screw Left: Hip [employer] [id number] 02/15/2031 [id number] / 0 / [id number] [employer] [id number] Trilogy 6.5mm 25mm Self Tap Screw Bone - S0 - [id number] Implanted:Qty: 1 on 06/02/2021 by Francois Tracey MD at [facility] Screw Left: Hip [employer] [id number] 05/18/2030 [id number] / 0 / [id number] [employer] Simplex P Full Dose Radiopaque Preblend Cement Bone Tobramycin 6197-9-010 - [id number] Implanted:Qty: 1 on 01/08/2023 by Francois Tracey MD at [facility] [employer] [id number] 05/05/2024 6197-9-010 / / [id number] [employer] Simplex P Full Dose Radiopaque Preblend Cement Bone Tobramycin 6197-9-010 - [id number] Implanted:Qty: 1 on 01/08/2023 by Francois Tracey MD at [facility] [employer] [id number] 05/05/2024 6197-9-010 / / [id number] [employer] Djo Surgical Empowr 3d Knee 10mm Knee Right 7 Insert Tibial 342-10-707 - [id number] Implanted:Qty: 1 on 01/08/2023 by Francois Tracey MD at [facility] [employer] [id number] 06/25/2026 342-10 -707 / / [id number] [employer] Insert Tibial Knee Fixed Size 27 Polyethylene 352-04-107 - [id number] Implanted:Qty: 1 on 01/08/2023 by Fracnois Tracey MD at [facility] [employer] 08/31/2028 352-04-107 / / [id number] [employer] Djo Surgical Empowr 3d Knee Knee Right 7 Component Femoral 241-02-107 - [id number] Implanted:Qty: 1 on 01/08/2023 by Francois Tracey MD at [facility] [employer] [id number] 10/12/2028 241-02 -107 / / [id number] Insurance MEDICARE [facility] MEDICARE ADVANTAGE [place] [id number] [facility] MEDICARE ADVANTAGE MEDICARE [employer] MEDICARE ADVANTAGE [facility] Address: [address] [address] [place] [address] [employer] [facility] MEDICARE ADVANTAGE [facility] Address: [address] [address] [place] [address] Advance Directives For more information, please contact: [phone] * Full Code (Latest Code Status on File) Date Activated Date Inactivated Comments 01/08/2023 12:35 PM 01/09/2023 4:55 PM * Full Code Date Activated Date Inactivated Comments 06/02/2021 2:10 PM 06/03/2021 5:14 PM Care Teams Alpaca Farmer Relationship Specialty Start Date End Date Moreno Anton MD PCP - General 11/03/16
--- NOTE | 2025-07-08 08:58 | ECHO_ITS ---
Patient Info Name: Keysha Richardson Age: 74 years : 1950 Gender: Female Ht: 62 in Wt: 200 lbs BSA: 2.04 m2 HR: 56 bpm BP: 128 / 84 mmHg Heart Rhythm: Sinus Rhythm Technical Quality: Fair Exam Date: 07/08/2025 9:04 AM Patient Status: O Admit Date: 07/08/2025 Exam Type: CA echo doppler color flow Complete two-dimensional, color flow and Doppler transthoracic echocardiogram is performed. [place] Fence Erector: Elizabeth Walker Attending Provider: Ebony Anderson Summary 1. Complete two-dimensional, color flow and Doppler transthoracic echocardiogram is performed. 2. Left ventricular chamber dimension is normal. 3. Left ventricular systolic function is normal, estimated at 60-65. 4. The left ventricular diastolic function is grade I diastolic dysfunction. 5. E/e' 9 is minimally elevated. 6. Left atrial chamber dimension is moderately enlarged. 7. There is mild aortic valve sclerosis. 8. There is trace aortic valve regurgitation. 9. The mitral valve has a mildly calcified annulus. 10. There is trace mitral valve regurgitation. 11. No pulmonary hypertension, estimated pulmonary arterial systolic pressure is 26 mmHg. 12. There is trace pulmonic regurgitation. Left Ventricle E/e' 9 is minimally elevated. Left ventricular chamber dimension is normal. Left ventricular systolic function is normal, estimated at 60-65. The left ventricular diastolic function is grade I diastolic dysfunction. Right Ventricle Right ventricular chamber dimension is normal. Right ventricular systolic function is normal and with normal TAPSE 2.2 cm. Left Atria Left atrial chamber dimension is moderately enlarged. Right Atria Right atrial chamber dimension is normal. Aortic Valve The aortic valve is trileaflet. There is mild aortic valve sclerosis. There is no aortic valve stenosis. There is trace aortic valve regurgitation. Pulmonic Valve There is trace pulmonic regurgitation. Mitral Valve The mitral valve has a mildly calcified annulus. There is no mitral valve stenosis. There is trace mitral valve regurgitation. Tricuspid Valve There is no tricuspid valve regurgitation. No pulmonary hypertension, estimated pulmonary arterial systolic pressure is 26 mmHg. Pericardium/Pleural There is no pericardial effusion. Inferior Vena Cava Normal inferior vena cava with >50% collapse upon inspiration consistent with normal right atrial pressure, 5 mmHg. Aorta The aortic root size at the sinus of Valsalva is normal. Left Ventricular Outflow Tract Name Value Normal LVOT 2D LVOT Diameter 2.0 cm Pulmonic Valve Name Value Normal RVOT Doppler RVOT Peak Velocity 84 cm/s RVOT Peak Gradient 3 mmHg PV Doppler PV Peak Velocity 99 cm/s PV Peak Gradient 4 mmHg Mitral Valve Name Value Normal MV Diastolic Function MV E Peak Velocity 78 cm/s MV A Peak Velocity 101 cm/s MV E/A 0.8 MV Decel Time (PW) 337 ms MV Annular TDI MV E/e' (Septal) 12.6 MV E/e' (Lateral) 7.5 MV E/e' (Average) 10.1 Tricuspid Valve Name Value Normal TV Regurgitation Doppler TR Peak Velocity 231 cm/s TR Peak Gradient 18 mmHg Estimated PAP/RSVP RA Pressure 5 mmHg <=5 PA Systolic Pressure 26 mmHg <36 RV Systolic Pressure 26 mmHg <36 TV Annular TDI TV Lateral Miguelina s' Velocity 10.9 cm/s >=9.5 Aorta Name Value Normal Ascending Aorta Ao Root Diameter (MM) 2.8 cm Ao Root Diam Index (MM) 1.4 cm/m2 Aortic Valve Name Value Normal AV Doppler AV Peak Velocity 157 cm/s AV Peak Gradient 10 mmHg AV Mean Gradient 5 mmHg AV VTI 37 cm AV Regurgitation 2D LVOT Area 3.2 cm2 Ventricles Name Value Normal LV Dimensions 2D/MM IVS Diastolic Thickness (2D) 1.1 cm 0.6-1.0 LVID Diastole (2D) 4.2 cm 3.8-5.2 LVIW Diastolic Thickness (2D) 1.0 cm 0.6-0.9 LVID Systole (2D) 2.9 cm 2.2-3.5 LVOT Diameter 2.0 cm LV Mass (2D Cubed) 145.68 g 67.00-162.00 LV Mass Index (2D Cubed) 72 g/m2 43-95 Relative Wall Thickness (2D) 0.47 <=0.42 LV Fractional Shortening/Ejection Fraction 2D/MM LV Fractional Shortening (2D) 32 % 27-45 LV EF (2D Teichholz) 60 % LV Diastolic Volume (4C MOD) 54 ml LV EF (4C MOD) 62 % LV Diastolic Volume (2C MOD) 40 ml LV EF (2C MOD) 62 % LV Diastolic Volume (BP MOD) 47 ml 46-106 LV Diastolic Volume Index (BP MOD) 23 ml/m2 29-61 LV Systolic Volume (BP MOD) 17 ml 14-42 LV Systolic Volume Index (BP MOD) 8 ml/m2 8-24 LV EF (BP MOD) 64 % 54-74 LV Diastolic Length (4C) 7.6 cm LV Systolic Length (4C) 6.1 cm LV Stroke Volume (4C MOD) 34 ml Atria Name Value Normal LA Dimensions LA Dimension (MM) 4.0 cm 2.7-3.8 LA Volume (4C A-L) 80 ml LA Volume (BP A-L) 77 ml RA Dimensions RA Area (4C) 14.8 cm2 <=18.0 Report Signatures
== END 2025-07-08 08:19 | disposition home or self-care (01) ==
PROVIDERS: PCP Family Medicine; Visit Provider Physician Assistant Medical
DX: R93.1 Abnormal findings on diagnostic imaging of heart and coronary circulation (principal); R06.09 Other forms of dyspnea
CPT/HCPCS: 93306